=== PATIENT | female | born 1965 | race Caucasian/White ===

== ENCOUNTER 2017-05-07 10:12 | Day surgery (SDC) | payer OTHER ==
--- NOTE | 2017-05-07 08:00 | History and Physical Report ---
DATE: 05/07/2017. CHIEF COMPLAINT AND HISTORY OF CHIEF COMPLAINT: This is a patient with a history of intractable postlumbar laminectomy radiculitis. She presents today for implantation of a permanent spinal cord stimulator after a successful trial. The trial conducted on March 17, 2017, resulted in 75 to 90 percent pain control. Due to the failure of all therapies and the success of the trial, she presents for implantation of a permanent system. PAST MEDICAL HISTORY: Hypertension, degenerative arthritis, depression, difficulty sleeping. SOCIAL HISTORY: Caffeine. FAMILY HISTORY: Coronary artery disease, cancer, hypertension. PAST SURGICAL HISTORY: Breast surgery, hysterectomy, lumbar spinal surgeries times two. 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 MEDICATIONS ON ADMISSION: To be provided. ALLERGIES: Mycins, latex, Steri-Strips. PHYSICAL EXAMINATION: General: Height is 5 feet, 4 inches. Weight is 300 pounds. Vital Signs: Blood pressure 140/80. Musculoskeletal: Current examination shows diffuse tenderness throughout the lumbar spine. Range of motion produces pain moving into both legs, somewhat more right than left. Ambulation: No assistive device utilized. Neurologic: Cranial nerves are intact. IMPRESSION: 1. POSTLUMBAR LAMINECTOMY SYNDROME, ICD-10 CODE M96.1. 2. LUMBAR RADICULITIS, ICD-10 CODE M54.16 AND M54.17. PLAN: The patient is here for implantation of a permanent spinal cord stimulator based upon a successful trial. The potential risks, side effects, and complications have all been carefully reviewed and discussed. This includes spinal cord injury, nerve root injury, paralysis, and spinal headache. The procedure will be considered outpatient, although an overnight stay will be evaluated. Masha MURGUIA D.O. Date & Time JOB NUMBER: [id number] cc: Victor Manuel Angel
[~2017-05-07 10:12] MED LIST: ACETAMINOPHEN 1,000 MG/100 ML BTL IV ONE; CEFAZOLIN 2 Gram 2 GM/50 ML BAG IVPB ONE; FAMOTIDINE 20MG TABLET PO ONE; MECLIZINE 25 MG TABLET PO ONE; METOCLOPRAMIDE 10 MG TABLET PO ONE
[2017-05-07] MEDS ORDERED: PROPOFOL 10 MG/ML VIAL IV ONE (14:00)
[2017-05-07] MEDS ORDERED: LIDOCAINE 2% MDV (20MG/ML) 20ML VIAL IV ONE (14:00)
[2017-05-07] MEDS ORDERED: LIDOCAINE 1% W/EPI 1:200,000 MPF 30ML SQ ONE (14:00)
[2017-05-07] MEDS ORDERED: BUPIVACAINE 0.5% W/EPI MPF 30 ML VIAL IVP ONE (14:00)
[2017-05-07] MEDS ORDERED: FENTANYL PF 100MCG/2ML VIAL IV ONE (14:00)
[2017-05-07] MEDS ORDERED: CEFAZOLIN 1G VIAL IM ONE (14:00)
[2017-05-07] MEDS ORDERED: MIDAZOLAM HCL 2MG/2ML VIAL IV ONE (14:00)
[2017-05-07] MEDS ORDERED: HYDROCODONE/APAP 7.5/325MG TABLET PO PRN ×2 (16:07)
[2017-05-07] MEDS ORDERED: METOCLOPRAMIDE 10 MG TABLET PO PRN (16:07)
[2017-05-07] MEDS ORDERED: METOCLOPRAMIDE HCL 10 MG/2 ML VIAL IVP PRN (16:07)
[2017-05-07] MEDS ORDERED: HYDROMORPHONE HCL 1 MG/ML CPJ IM PRN (16:07)
[2017-05-07] MEDS ORDERED: SENNOSIDES/DOCUSATE SODIUM UD CAPSULE PO PRN ×2 (16:07)
[2017-05-07] MEDS ORDERED: DIPHENHYDRAMINE HCL 25 MG CAPSULE PO PRN ×2 (16:07)
[2017-05-07] MEDS ORDERED: AL HYDROX/MAG HYDROX 30ML UD PO PRN (16:07)
[2017-05-07] MEDS ORDERED: OXYCODONE/APAP 10MG-325MG TABLET PO PRN (16:07)
[2017-05-07] MEDS ORDERED: TEMAZEPAM 15 MG CAPSULE PO PRN ×2 (16:07)
[2017-05-07] MEDS ORDERED: DIPHENHYDRAMINE HCL IV 50 MG/ML VIAL IVP PRN ×2 (16:07)
[2017-05-07] MEDS ORDERED: HYDROMORPHONE HCL 2 MG/ML VIAL IM PRN (16:07)
[2017-05-07] MEDS ORDERED: ACETAMINOPHEN 325 MG TAB PO PRN ×2 (16:07)
[2017-05-07] MEDS: OXYCODONE/APAP 10MG-325MG TABLET PO PRN ×2 (17:29→22:13)
--- NOTE | 2017-05-07 21:16 | Operative Note - Ferro ---
DATE OF SURGERY: 05/07/17 PREOPERATIVE DIAGNOSIS: LUMBAR RADICULITIS ICD-10 CODE = M54.16 AND M54.17. OPERATION: 1. FLUOROSCOPIC-GUIDED EPIDURAL ACCESS RIGHT T12-L1, PLACEMENT OF SPINAL CORD STIMULATOR LEAD 1, A [employer] IN[employer]INION 16 WITH 6 ELECTRODES POSITIONED RIGHT T8. 2. FLUOROSCOPIC-GUIDED EPIDURAL ACCESS RIGHT T11-12, CURVED ACCESS, INADVERTENT DURAL PUNCTURE WITH CSF, PLACEMENT OF SPINAL CORD STIMULATOR LEAD 2, A [employer] 16 WITH 6 ELECTRODES POSITIONED LEFT T8. 3. COMPLEX PROGRAMMING LEAD 1, OVER 20 MINUTES FOLLOWED BY COMPLEX PROGRAMMING LEAD 2, OVER 20 MINUTES. 4. INCISION, SUBCUTANEOUS DISSECTION AND ANCHORING LEAD 1 AND LEAD 2 TO SUPRASPINOUS FASCIA WITH THE ANCHORING DEVICE AND NONABSORBABLE SUTURE. 5. INCISION, SUBCUTANEOUS DISSECTION AND CREATION OF SUBCUTANEOUS POUCH AT RIGHT POSTERIOR SUPERIOR GLUTEAL MARGIN FOR PLACEMENT OF GENERATOR IDENTIFIED A [employer], PROGRAMMABLE AND RECHARGEABLE. 6. TUNNELING BETWEEN POUCHES, PLACEMENT OF EXTERNAL PORTION OF LEAD 1 AND LEAD 2 INTO GENERATOR POUCH, EACH LEAD INTERFACED WITH BIFURCATING EXTENSION, EACH BIFURCATING EXTENSION INTERFACED WITH GENERATOR. 7. PLACEMENT GENERATOR POUCH, PLACEMENT OF LEADS INTO POUCH, CLOSURE OF INCISIONS WITH VICRYL FOR FASCIA AND SUBCUTICULAR VICRYL FOR SKIN. DERMABOND CLOSURE. 8. EPIDURAL BLOOD PATCH AT L2-3, 20 ML AUTOLOGOUS BLOOD DRAWN USING STERILE TECHNIQUE, LEFT ANTECUBITAL. 9. COMPLEX PROGRAMMING OF INTERNAL GENERATOR, HOME USE, TWO STIMULATORS, IN RECOVERY ROOM FOR 20 MINUTES. SURGEON: BIRD MURGUIA D.O. ANESTHESIA: LOCAL SEDATION. ANESTHESIA PROVIDER: ETHAN MARINELLI CRNA INDICATIONS: This patient presents with a history of intractable lumbar radiculitis. A spinal cord stimulator trial conducted office-based producing 75- 85% pain control. Due to the failure of all therapy and the success of the trial , she presents for permanent implantation. The trial notes indicate difficult access and difficult navigation. PROCEDURE: Intravenous line, vital sign monitoring, IV sedation, prepped and draped using sterile technique. Patient positioned prone. Two separate curved access Epimed needles with [id number] using a right paramedian approach. At T12-L1, spinal cord stimulator lead 1, a [employer] Infinion 16 with 6 electrodes, was positioned right at T8. Epidural access at T11-12, similar technique, resulted in an inadvertent dural puncture with CSF noted. The needle was slightly retracted, then spinal cord stimulator lead 2, a [employer] Infinion 16 with 6 electrodes was positioned in the epidural space and advanced left to T8. Complex programming of lead 1, over 20 minutes followed complex programming of lead 2, over 20 minutes, ultimately resulting in patterns of stimulation across the back and into the legs. Patient indicating we were in all the areas of the pain. She was given the option to implant and continue to program or remove. She opted to implant. The skin above and below the needle was infiltrated and an incision made and subcutaneous dissection was conducted to the supraspinous fascia. Each lead was then anchored to the supraspinous fascia with a [employer] [place]. At the right posterior gluteal margin, a site picked by the patient for the generator, skin infiltrated and an incision made and subcutaneous dissection was conducted to form a pouch of suitable size and depth for the generator. A tunneling tool was used to carry the leads into the generator pouch and then each lead was interfaced with a bifurcating extension. Each bifurcating extension was then interfaced with the generator. Antibiotic irrigation. Bovie for hemostasis. The incisions were then closed with Vicryl for fascia, running subcuticular Vicryl for skin. The generator was secured to the posterior fascia using nonabsorbable suture. Dermabond closure. At L2-3, which was below the dural puncture, skin infiltrated and then a #17 gauge, six-inch Tuohy needle with [id number] into the epidural space. 20 mL of autologous blood was drawn using sterile technique from the left antecubital was then placed onto the field and epidural blood patch was performed at this level. The dressing was reinforced. She was transported to the Recovery Room stable flat, pillow under head and knees. She will stay flat for four hours, slowly elevated for one and will be kept overnight for observation. IN THE MORNING DISCHARGE INSTRUCTIONS: 1. The sites are to remain clean and dry. No showering or bathing in any way that would disrupt dressings. If it happens, contact the Clinic. 2. Standard medications resumed including Levaquin, the antibiotic, 500 mg once a day for 14 days. 3. The office will contact the patient to evaluate the incisional sites in three to five days. Until then, her activities should stay low. Should she notice a headache, she is to contact the Clinic. We encourage fluids, caffeinated beverages. cc: Dr. Potter JOB NUMBER: [id number] MTDD
[2017-05-07] MEDS: CEFAZOLIN 2 Gram 2 GM/50 ML BAG IVPB SCH (22:00)
[2017-05-07] MEDS ORDERED: CARVEDILOL 12.5 MG TABLET PO SCH (22:00)
[2017-05-07] MEDS ORDERED: LISINOPRIL 20 MG TABLET PO SCH (22:00)
[2017-05-07] MEDS ORDERED: OXYBUTYNIN CHLORIDE 5MG TABLET PO SCH (22:00)
[2017-05-07] MEDS ORDERED: 0.9 % SODIUM CHLORIDE 10ML SYR IVP SCH (22:00)
[2017-05-07] MEDS ORDERED: ATORVASTATIN 20 MG TABLET PO SCH (22:00)
[2017-05-07] MEDS ORDERED: AMLODIPINE BESYLATE 5MG TAB PO SCH (22:00)
[2017-05-07] MEDS ORDERED: VENLAFAXINE ER 75 MG CAPSULE PO SCH (22:00)
[2017-05-08] MEDS: OXYCODONE/APAP 10MG-325MG TABLET PO PRN ×2 (03:05→08:40)
[2017-05-08] MEDS ORDERED: LEVOFLOXACIN 500 MG TABLET PO ONE (06:15)
[2017-05-08] MEDS: CEFAZOLIN 2 Gram 2 GM/50 ML BAG IVPB SCH (06:23)
[2017-05-08] MEDS ORDERED: VENLAFAXINE ER 75 MG CAPSULE PO SCH (10:00)
[2017-05-08] MEDS ORDERED: FUROSEMIDE 40 MG TABLET PO SCH (10:00)
--- NOTE | 2017-05-08 13:23 | RADIOLOGY REPORT ---
EXAM: AP THORACOLUMBAR SPINE HISTORY: STIMULATOR IMPLANT. TECHNIQUE: An AP view of the thoracolumbar spine was obtained. Comparison: None. FINDINGS: Stimulator leads extend cephalad over the thoracic spine extending to the upper T8 level. Multilevel disk disease. IMPRESSION: STIMULATOR LEADS EXTEND CEPHALAD TO THE UPPER T8 LEVEL. JOB NUMBER: [id number] MTDD
== END 2017-05-08 09:45 | disposition home or self-care (01) ==
LOC: SUR 10:12 → MEDSURG 15:38 → SUR 05-08 09:45
PROVIDERS: ATTEND Pain Medicine Interventional Pain Medicine
DX: M96.1 Postlaminectomy syndrome, not elsewhere classified (principal); M54.16 Radiculopathy, lumbar region; M54.17 Radiculopathy, lumbosacral region; I10 Essential (primary) hypertension; I25.10 Atherosclerotic heart disease of native coronary artery without angina pectoris; E78.00 Pure hypercholesterolemia, unspecified; D68.0 Von Willebrand disease
CPT/HCPCS: 63685; 63650 ×2; 00300; 95972; 72020; J3490; J3010; J0690